=== PATIENT | male | born 1965 | race Caucasian/White ===

== ENCOUNTER → 2024-05-10 11:45 | Outpatient (CLI) | payer OTHER, SELFPAY ==
--- NOTE | 2024-05-10 11:59 | DI.RAD.S_ITS ---
PROCEDURE: XR HAND RT 2V INDICATIONS: Arthritis/Bursitis Screen TECHNIQUE: 2 views of the hand acquired. COMPARISON: None. FINDINGS: Bones: No fractures or dislocations. Carpal bones are normally aligned. No suspicious bony lesions. Mild joint space narrowing and small marginal osteophytes at the first carpometacarpal joint. Mild degenerative changes of the interphalangeal joints of fingers. Soft tissues: No suspicious soft tissue calcifications. IMPRESSION: Mild arthritic changes, most notably at the 1st carpometacarpal joint. No osseous erosions identified. Approved by: Maik Templeton M.D. on 05/10/2024 at 16:38
--- NOTE | 2024-05-10 11:59 | DI.RAD.S_ITS ---
PROCEDURE: XR FOOT LT 2V INDICATIONS: Arthritis/Bursitis Screen TECHNIQUE: 2 views of the foot were acquired. COMPARISON: None. FINDINGS: Bones: No acute fractures or dislocations. No suspicious bony lesions. Mild degenerative changes of the interphalangeal joints of the toes. Small ossification adjacent to the distal fibular tip is likely the sequela of a remote prior injury. Soft tissues: No nodular soft tissue swelling. IMPRESSION: Minimal arthritic changes. No definite osseous erosions. Approved by: Maik Templeton M.D. on 05/10/2024 at 16:40
--- NOTE | 2024-05-10 11:59 | DI.RAD.S_ITS ---
PROCEDURE: XR FOOT RT 2V INDICATIONS: Arthritis/Bursitis Screen TECHNIQUE: 2 views of the foot were acquired. COMPARISON: None. FINDINGS: Bones: No acute fractures or dislocations. No suspicious bony lesions. Surgical anchor is seen at the 5th metatarsal base. Mild scattered degenerative changes of the interphalangeal joints of the toes and the 1st metatarsophalangeal joint. Soft tissues: No nodular soft tissue swelling. IMPRESSION: Mild arthritic changes. No definite osseous erosions. Approved by: Maik Templeton M.D. on 05/10/2024 at 16:41
--- NOTE | 2024-05-10 11:59 | DI.RAD.S_ITS ---
PROCEDURE: XR HAND LT 2V INDICATIONS: Arthritis/Bursitis Screen TECHNIQUE: 2 views of the hand(s) acquired. COMPARISON: None. FINDINGS: Bones: No fractures or dislocations. Carpal bones are normally aligned. Osteoarthritic changes are noted throughout interphalangeal joints with joint space narrowing and subchondral sclerosis. Subcortical radiolucencies involving 3rd and 4th proximal phalangeal heads as well as 2nd through 4th middle phalangeal heads are seen concerning for subtle erosive changes. No suspicious bony lesions. Soft tissues: No suspicious soft tissue calcifications. IMPRESSION: Osteoarthritic changes involving interphalangeal joints with area of subcortical radiolucencies concerning for subcortical cysts versus erosion secondary to inflammatory arthropathy. No fracture or dislocation. Dictated by: Jacobo Kessler M.D. on 05/10/2024 at 15:14 Approved by: Jacobo Kessler M.D. on 05/10/2024 at 15:51
[2024-05-10 13:48] LABS: Appearance Urine UA CLEAR; Bilirubin Urine UA NEGATIVE (NEGATIVE); Color Urine UA YELLOW; Glucose Urine UA NEGATIVE (Negative); Ketones Urine UA NEGATIVE (NEGATIVE); Leukocyte Esterase Urine UA 2+ (NEGATIVE); Nitrite Urine UA POSITIVE (Negative); Occult Blood Urine UA NEGATIVE (Negative); Protein Urine UA NEGATIVE (Negative); Urobilinogen Urine UA 0.2 E.U./dL (0.2)
[2024-05-10 14:06] LABS: Urine Volume 10mL (spun)
[2024-05-10 14:07] LABS: Bacteria Urine Many (>30); Culture Indicated Urine Specimen Cultured; RBC Urine None Seen (0-5/HPF); Squamous Epithelial Cell Urine 0-1 /HPF (0-5/HPF); WBC Urine 5-10/HPF (0-5/HPF)
[2024-05-10 15:06] LABS: Alanine Aminotransferase 27 IU/L (<50); Albumin 4.4 g/dL (3.5-5.0); Albumin Globulin Ratio 1.9 (1.0-2.8); Alkaline Phosphatase 85 U/L (38-126); Aspartate Aminotransferase 26 IU/L (17-59); BUN Creatinine Ratio 15.3 (6-22); Bilirubin Total 0.9 mg/dL (0.2-1.3); Blood Urea Nitrogen 15 mg/dL (9-20); Calcium 9.3 mg/dL (8.4-10.2); Carbon Dioxide 24 mmol/L (22-32); Chloride 107 mmol/L (98-107); Estimated Glomerular Filt Rate > 60 mL/min (>60); Globulin 2.3 g/dL (1.7-4.1); Glucose 92 mg/dL (70-100); HEMOLYSIS < 15 (0-50); Potassium 4.3 mmol/L (3.4-5.1); Sodium 138 mmol/L (137-145); Total Protein 6.7 g/dL (6.3-8.2)
== END ==
PROVIDERS: Referring Provider Chiropractor; Visit Provider Chiropractor
DX: E11.9 Type 2 diabetes mellitus without complications (principal); M13.80 Other specified arthritis, unspecified site; M84.40XA Pathological fracture, unspecified site, initial encounter for fracture
CPT/HCPCS: 36415; 73120; 73620; 80053; 81003; 81015; 87077; 87086; 87186